=== PATIENT | female | born 1965 | race Native Hawaiian/Other Pacific Islander ===

== ENCOUNTER 2018-10-01 10:34 | Day surgery (SDC) | payer OTHER ==
[~2018-10-01] VITALS: Ht 170.2 cm; Wt 144.1 kg
[~2018-10-01 10:34] MED LIST: FERR-89 PO; FURO20 PO; HYDR200T4 PO; IBUP-2279 PO; OXYC-158 PO
[2018-10-01] MEDS ORDERED: SODIUM CHLORIDE 0.9% 1,000 ML IV ONE ×2 (10:54→11:30)
[2018-10-01] MEDS ORDERED: METH2.5 PO (11:16)
[2018-10-01] MEDS ORDERED: DOXY100C40 PO (11:16)
[2018-10-01] MEDS ORDERED: LORA10TA7 PO (11:16)
[2018-10-01] MEDS ORDERED: HYDR25TA PO (11:16)
[2018-10-01] MEDS ORDERED: IBUP-2070 PO (11:16)
[2018-10-01] MEDS ORDERED: TRAM50TA4 PO (11:16)
[2018-10-01] MEDS ORDERED: LIDOCAINE/PF 2% 5 ML VIAL INJ ONE (12:00)
[2018-10-01] MEDS ORDERED: PROPOFOL 1% 20 ML VIAL IVP ONE (12:00)
== END 2018-10-01 16:20 | disposition home or self-care (01) ==
LOC: SURGERY 10:34
PROVIDERS: ATTEND Student in an Organized Health Care Education/Training Program
DX: D12.8 Benign neoplasm of rectum (principal); K57.30 Diverticulosis of large intestine without perforation or abscess without bleeding; K64.8 Other hemorrhoids; K29.30 Chronic superficial gastritis without bleeding; K31.89 Other diseases of stomach and duodenum; E66.01 Morbid (severe) obesity due to excess calories; I10 Essential (primary) hypertension; M06.9 Rheumatoid arthritis, unspecified; M32.9 Systemic lupus erythematosus, unspecified; F17.210 Nicotine dependence, cigarettes, uncomplicated; M19.90 Unspecified osteoarthritis, unspecified site; Z79.1 Long term (current) use of non-steroidal anti-inflammatories (NSAID); Z68.42 Body mass index [BMI] 45.0-49.9, adult; Z79.891 Long term (current) use of opiate analgesic; Z79.899 Other long term (current) drug therapy
CPT/HCPCS: 43239; 45380; 88305; 88312; C1769; J2704; J3490; J7030